=== PATIENT | male | born 1950 | race Caucasian/White ===

== ENCOUNTER 2023-04-08 13:18 | Outpatient (CLI) | payer OTHER, MEDICARE | END 2023-04-08 13:19 | disposition home or self-care (01) | LOC: BICRAD 13:18 | PROVIDERS: ATTEND Physician Assistant | DX: M25.552 Pain in left hip (principal) ==

== ENCOUNTER 2023-08-06 08:44 | Outpatient (CLI) | payer OTHER, MEDICARE | END 2023-08-06 08:45 | disposition home or self-care (01) | LOC: MRI 08:44 | PROVIDERS: ATTEND Psychiatry & Neurology Neurology | DX: H93.19 Tinnitus, unspecified ear (principal); R27.0 Ataxia, unspecified; I67.89 Other cerebrovascular disease; R90.89 Other abnormal findings on diagnostic imaging of central nervous system | CPT/HCPCS: 70544; 70547; 70551 ==

== ENCOUNTER 2023-10-09 11:28 | Outpatient (CLI) | payer OTHER, MEDICARE | END 2023-10-09 11:29 | disposition home or self-care (01) | LOC: BICMRI 11:28 | PROVIDERS: ATTEND Psychiatry & Neurology Neurology | DX: R27.0 Ataxia, unspecified (principal); M25.78 Osteophyte, vertebrae; M48.02 Spinal stenosis, cervical region; G95.89 Other specified diseases of spinal cord | CPT/HCPCS: 72141 ==